=== PATIENT | male | born 1975 | race Caucasian/White ===

== ENCOUNTER 2016-07-20 10:59 | Emergency (ER) | payer OTHER ==
[2016-07-20 11:09] VITALS: TEMP 100.6
[2016-07-20] MEDS ORDERED: SODIUM CHLORIDE 0.9% 1,000 ML IV STA (11:17)
[2016-07-20] MEDS ORDERED: HYDROmorphone 1 MG/ML 1 ML SYRINGE IVP STA (11:18)
[2016-07-20] MEDS ORDERED: ACETAMINOPHEN TAB 500 MG TAB PO STA (11:24)
--- NOTE | 2016-07-20 11:24 | ED ---
Skin/Abscess/FB HPI - General Chief complaint: Skin/Abscess/Foreign Body Stated complaint: Male Time Seen by Provider: 07/20/16 11:10 Source: patient, RN notes reviewed Mode of arrival: ambulatory Limitations: no limitations - History of Present Illness Initial comments: 41 yo male presents to the ER with cc of abscess to the perineum. Patient states his on and off in for irritation to the area for the last 6 months but over the last week or so he's noticed an increased pain and tenderness. Patient states that he was concerned because he just does not seem to be improving slightly thought that he should be evaluated. Patient states there hasn't been any nausea or vomiting with this. Patient denies any fever or chills. Denies any cough cold runny nose. The patient was concerned due to the continued irritation so they thought that they should be evaluated. Patient denies any recent fever, chills, shortness of breath, chest pain, back pain, abdominal pain, nausea vomiting, numbness or tingling, dysuria or hematuria, constipation or diarrhea, headaches or visual changes, or any other current symptoms. - Related Data Home Medications Medication Instructions Recorded Confirmed Insulin Glargine,Hum.rec.anlog 36 units SQ HS 07/20/16 07/20/16 [Tomalcolm Hardwick] Previous Rx's Medication Instructions Recorded Clindamycin [Cleocin] 450 mg PO Q8HR #90 capsule 07/20/16 Hydrocodone/Acetaminophen [[place] 1 each PO Q6HR PRN #20 tab 07/20/16 5-325] Allergies Allergy/AdvReac Type Severity Reaction Status Date / Time No Known Allergies Allergy Unverified 07/20/16 12:33 Review of Systems ROS Statement: Those systems with pertinent positive or pertinent negative responses have been documented in the HPI. ROS Other: All systems not noted in ROS Statement are negative. Past Medical History Past Medical History: Diabetes Mellitus Additional Past Medical History / Comment(s): type 2 DM History of Any Multi-Drug Resistant Organisms: None Reported Additional Past Surgical History / Comment(s): eye sx Past Psychological History: No Psychological Hx Reported Smoking Status: Former smoker Past Alcohol Use History: Rare Past Drug Use History: None Reported General Exam Limitations: no limitations General appearance: alert, in no apparent distress Head exam: Present: atraumatic, normocephalic, normal inspection Neck exam: Present: normal inspection. Absent: tenderness, meningismus, lymphadenopathy Respiratory exam: Present: normal lung sounds bilaterally. Absent: respiratory distress, wheezes, rales, rhonchi, stridor Cardiovascular Exam: Present: regular rate, normal rhythm, normal heart sounds. Absent: systolic murmur, diastolic murmur, rubs, gallop, clicks exam: Present: other (She appears to have that test to the right side of the perineum to the right gluteal area.) Neurological exam: Present: alert, oriented X3 Psychiatric exam: Present: normal affect, normal mood Skin exam: Present: warm, dry, intact, normal color. Absent: rash Course Vital Signs 07/20/16 11:03 Temperature 100.6 F H Pulse Rate 111 H Respiratory 18 Rate Blood Pressure 134/75 O2 Sat by Pulse 98 Oximetry Medical Decision Making - Medical Decision Making 41-year-old male presents to the emergency department with a chief complaint of abscess of the perineum. At this time patient underwent I&D of the area. At this time we gave patient IV Clinda. Patient's lab work is reviewed. At this time we did offer the patient admission for IV antibiotics and further observation. The patient states that he would like to go home. We did give him IV clindamycin and we will start him on clindamycin for home. We did discuss that he could require admission. We did discuss the risks of this we discussed return parameters discussed follow-up. The patient stated he understood and all questions have been answered. This time he will be discharged. - Lab Data Result diagrams: 07/20/16 11:48 07/20/16 11:48 Lab Results 07/20/16 07/20/16 07/20/16 Range/Units 11:48 11:48 11:48 WBC 13.0 H (3.8-10.6) k/uL RBC 5.10 (4.30-5.90) m/uL Hgb 15.7 (13.0-17.5) gm/dL Hct 46.8 (39.0-53.0) % MCV 91.8 (80.0-100.0) fL MCH 30.8 (25.0-35.0) pg MCHC 33.6 (31.0-37.0) g/dL RDW 13.3 (11.5-15.5) % Plt Count 195 (150-450) k/uL Neutrophils % 79 % Lymphocytes % 13 % Monocytes % 5 % Eosinophils % 2 % Basophils % 1 % Neutrophils # 10.2 H (1.3-7.7) k/uL Lymphocytes # 1.6 (1.0-4.8) k/uL Monocytes # 0.6 (0-1.0) k/uL Eosinophils # 0.2 (0-0.7) k/uL Basophils # 0.1 (0-0.2) k/uL Sodium 137 (137-145) mmol/L Potassium 4.3 (3.5-5.1) mmol/L Chloride 106 (98-107) mmol/L Carbon Dioxide 20 L (22-30) mmol/L Anion Gap 11 mmol/L BUN 13 (9-20) mg/dL Creatinine 0.72 (0.66-1.25) mg/dL Est GFR (MDRD) Af Amer >60 (>60 ml/min/1.73 sqM) Est GFR (MDRD) Non-Af >60 (>60 ml/min/1.73 sqM) Glucose 214 H (74-99) mg/dL Plasma Lactic Acid Olu 0.9 (0.7-2.0) mmol/L Calcium 8.8 (8.4-10.2) mg/dL Total Bilirubin 1.6 H (0.2-1.3) mg/dL AST 17 (17-59) U/L ALT 25 (21-72) U/L Alkaline Phosphatase 93 (38-126) U/L Total Protein 6.4 (6.3-8.2) g/dL Albumin 3.6 (3.5-5.0) g/dL Disposition Clinical Impression: Perineal abscess Disposition: HOME SELF-CARE Condition: Stable Instructions: Abscess Incision and Drainage (ED), Abscess (ED) Additional Instructions: Please use medication as discussed. Please follow up with family doctor if symptoms have not improved over the next two days. Please return to the emergency room if your symptoms increase or worsen or for any other concerns. Prescriptions: Clindamycin [Cleocin] 450 mg PO Q8HR #90 capsule Hydrocodone/Acetaminophen [[place] 5-325] 1 each PO Q6HR PRN #20 tab PRN Reason: Pain Referrals: Payton Villanueva MD [Primary Care Provider] - 1-2 days Time of Disposition: 13:07
[2016-07-20 12:09] LABS: Basophils # (A) 0.1 k/uL (0-0.2); Basophils % (A) 1 %; CH 30.6; CHCM 33.5; Eosinophils # (A) 0.2 k/uL (0-0.7); Eosinophils % (A) 2 %; HCT 46.8 % (39.0-53.0); HDW 2.18; HGB 15.7 gm/dL (13.0-17.5); Luc % (Auto) 2; Lymphocytes # (A) 1.6 k/uL (1.0-4.8); Lymphocytes % (A) 13 %; MCH 30.8 pg (25.0-35.0); MCHC 33.6 g/dL (31.0-37.0); MCV 91.8 fL (80.0-100.0); Mean Platelet Volume 7.5; Monocytes # (A) 0.6 k/uL (0-1.0); Monocytes % (A) 5 %; Neutrophils # (A) 10.2 k/uL (1.3-7.7); Neutrophils % (A) 79 %; RDW 13.3 % (11.5-15.5); WBC (Perox) 12.52
[2016-07-20 12:24] LABS: ALT 25 U/L (21-72); AST 17 U/L (17-59); Alkaline Phosphatase 93 U/L (38-126); Anion Gap 11 mmol/L; Blood Urea Nitrogen 13 mg/dL (9-20); Calcium 8.8 mg/dL (8.4-10.2); Carbon Dioxide 20 mmol/L (22-30); Chloride 106 mmol/L (98-107); Glucose 214 mg/dL (74-99); Non-African American GFR(MDRD) >60 (>60 ml/min/1.73 sqM); Potassium 4.3 mmol/L (3.5-5.1); Sodium 137 mmol/L (137-145); Total Bilirubin 1.6 mg/dL (0.2-1.3); Total Protein 6.4 g/dL (6.3-8.2)
[2016-07-20] MEDS ORDERED: CLINDAMYCIN 900 MG in DEXTROSE 5% IN WATER 50 ML IVPB STA ×2 (12:41)
[2016-07-20 13:05] VITALS: BP 133/75; PULSE 93; RESP 16
== END 2016-07-20 13:45 | disposition home or self-care (01) ==
LOC: EC 10:59
DX: L02.215 Cutaneous abscess of perineum (principal); E11.9 Type 2 diabetes mellitus without complications; Z87.891 Personal history of nicotine dependence; Z79.4 Long term (current) use of insulin
CPT/HCPCS: 36415; 80053; 83605; 85025; 87040; 99283; 96365; 96375; 96361; J1170

== ENCOUNTER → 2017-03-11 | Outpatient (CLI) | payer OTHER ==
--- NOTE | 2017-03-11 16:32 | MR ---
EXAMINATION TYPE: MR knee RT wo con DATE OF EXAM: 03/11/2017 COMPARISON: NONE HISTORY: Pain in Right knee TECHNIQUE: Multiplanar, multisequence imaging of the right knee is performed without IV contrast. FINDINGS: MEDIAL MENISCUS: There is increased signal within the substance of the posterior horn medial meniscus compatible with internal derangement or degenerative change. Anterior horn medial meniscus appears i ntact. LATERAL MENISCUS: Anterior and posterior horns are intact without tear. CRUCIATE LIGAMENTS: The anterior and posterior cruciate ligaments are intact and unremarkable. COLLATERAL LIGAMENTS: The medial collateral ligament and lateral collateral ligament complex are inta ct and unremarkable. EXTENSOR MECHANISM: Visualized quadriceps and patellar tendons are intact. EFFUSION: There is a small suprapatellar joint effusion. POPLITEAL CYST: No popliteal/park cyst. TRICOMPARTMENT SPACES: There is narrowing of the medial and lateral compartment joint spaces. CARTILAGE: There is thinning of the articular cartilage of the medial and lateral compartments. Sargent lofemoral joint space appears preserved. BONE MARROW SIGNAL: No focal abnormal marrow signal is appreciated. OTHER: Superficial soft tissue swelling is present at the patella and infrapatellar space. There is some scattered increased signal near the posterior tibial plateau and soleus muscle IMPRESSION: Internal derangement of the posterior horn medial meniscus. 2. Small joint effusion. 3. Superficial soft tissue swelling prepatellar and infrapatellar region. Some minimal edema is not e xcluded posterior to the tibial plateau and soleus muscle.
== END | disposition home or self-care (01) ==
LOC: RADMRIMAIN 07:19
PROVIDERS: ATTEND Orthopaedic Surgery
DX: M23.021 Cystic meniscus, posterior horn of medial meniscus, right knee (principal); M25.461 Effusion, right knee